=== PATIENT | female | born 1945 | race Caucasian/White ===

== ENCOUNTER 2017-04-18 15:50 | Inpatient (IN) | payer MEDICARE, MEDICAID ==
[~2017-04-18] VITALS: Ht 170.2 cm; Wt 83.5 kg
--- NOTE | 2017-04-18 16:05 | NUR ---
AAOX3, FROM SNF C/O L SIDE ABDOMINAL PAIN. RR IS EVEN AND UNLABORED WITH NAD NOTED. SKIN IS WARM AND DRY. AWAITING MD FOR EVAL.
[2017-04-18 16:44] LABS: BASOPHILS % (AUTO) 0.6 % (0.0-2.0); EOSINOPHILS # (AUTO) 0.1 /CMM (0.0-0.7); EOSINOPHILS % (AUTO) 1.9 % (0.0-6.0); HEMATOCRIT 41 % (33-45); HEMOGLOBIN 13.5 g/dL (11.5-14.8); LYMPHOCYTES # (AUTO) 1.5 /CMM (0.8-4.8); LYMPHOCYTES % (AUTO) 19.2 % (20.0-44.0); MEAN CORPUSCULAR HEMOGLOBIN 28 PG (26.0-33.0); MEAN CORPUSCULAR HGB CONC 33 g/dl (31.0-36.0); MEAN CORPUSCULAR VOLUME 83 fL (82-100); MONOCYTES # (AUTO) 0.5 /CMM (0.1-1.30); MONOCYTES % (AUTO) 6.4 % (2.0-12.0); NEUTROPHILS # (AUTO) 5.7 /CMM (1.8-8.9); NEUTROPHILS % (AUTO) 71.9 % (43.0-81.0); PLATELET COUNT (AUTO) 253 /CMM (150-450); RDW COEFFICIENT OF VARIATION 13.9 (11.5-15.0); WHITE BLOOD COUNT (AUTO) 7.8 K/uL (4.3-11.0)
[2017-04-18 16:53] LABS: CALCIUM, SERUM 9.2 mg/dL (8.5-10.1); CARBON DIOXIDE 26 mmol/L (21-32); CHLORIDE 104 mmol/L (98-107); CREATININE 1.1 mg/dL (0.6-1.3); GLUCOSE 104 mg/dL (74-106); POTASSIUM 4.2 mmol/L (3.5-5.1); SODIUM SERUM 137 mmol/L (136-145); UREA NITROGEN, BLOOD 30 mg/dL (7-18)
--- NOTE | 2017-04-18 17:04 | NUR ---
DR.RUTHERFORD YVETTE BRICK MASON
--- NOTE | 2017-04-18 17:09 | NUR ---
CALLED NURSING SUP. FOR MS BED
[2017-04-18] MEDS ORDERED: HYDROCODONE/APAP 5/325MG 1 EACH TABLET PO PRN (17:30)
[2017-04-18] MEDS ORDERED: IV NS 0.9% 1,000 ML BAG IV ONE (17:30)
[2017-04-18] MEDS ORDERED: ONDANSETRON HCL/PF 4 MG/2 ML VIAL IVP PRN (17:30)
[2017-04-18] MEDS ORDERED: Z GUARD REMEDY 2 OZ OINT TP PRN (17:30)
[2017-04-18] MEDS ORDERED: ZOLPIDEM TARTRATE 5 MG TABLET PO PRN (17:30)
[2017-04-18] MEDS ORDERED: MAG HYDROX/AL HYDROX/SIMETH 30 ML UDC PO PRN (17:30)
[2017-04-18] MEDS ORDERED: MAGNESIUM HYDROXIDE 30 ML UDC PO PRN (17:30)
--- NOTE | 2017-04-18 17:33 | NUR ---
MS 307-2
[2017-04-18] MEDS ORDERED: LACT10SO PO (17:57)
[2017-04-18] MEDS ORDERED: SUCR1TAB PO (17:57)
[2017-04-18] MEDS ORDERED: HYDR-552 PO (17:57)
[2017-04-18] MEDS ORDERED: SERT25TA PO (17:57)
[2017-04-18] MEDS ORDERED: ACET325T53 PO (17:57)
[2017-04-18] MEDS ORDERED: LINA290C PO (17:57)
[2017-04-18] MEDS ORDERED: TEMA15CA PO (17:57)
[2017-04-18] MEDS ORDERED: FAMO20TA8 PO (17:57)
[2017-04-18] MEDS ORDERED: LOSA50TA21 PO (17:57)
[2017-04-18] MEDS ORDERED: ALBU18HF2 IH (17:57)
[2017-04-18] MEDS ORDERED: FERR-58 PO (17:57)
--- NOTE | 2017-04-18 18:08 | NUR ---
REPORT GIVEN TO JF SWANSON FOR [facility] MS 307-2
--- NOTE | 2017-04-18 19:35 | NUR ---
MS RN INITIAL NOTES PT IS IN BED RESTING, AWAKE AND ALERT. ABLE TO MAKE NEEDS KNOWN. PT IS IN GOOD SPIRITS. DENIES PAIN. BREATHING EVENLY AND UNLABORED ON RA, NO SIGNS OF SOB OR DISTRESS. SKIN IS INTACT, C- SECTION SCARRING NOTED. IV FLUIDS TO BE HUNG, IV ACCESS IS INTACT AND PATENT. BED IS IN LOW AND LOCKED POSITION, CALL LIGHT WITHIN REACH. WILL CONTINUE TO MONITOR PT
[2017-04-18 20:00] VITALS: BP 124/70
[2017-04-18] MEDS: IV NS 0.9% 1,000 ML IV PRN (20:04)
[2017-04-18] MEDS: ENOXAPARIN SODIUM 30 MG/0.3 ML DISP.SYRIN SQ SCH (20:04)
--- NOTE | 2017-04-19 06:16 | NUR ---
MS RN CLOSING NOTES PT IS IN BED RESTING. NO SIGNS OF SOB OR DISTRESS. BREATHING EVENLY AND UNLABORED ON RA. IV ACCESS IS INTACT AND PATENT WITH FLUIDS RUNNING.URINE COLLECTED. NO ACUTE CHANGES THROUGHOUT THE SHIFT. ALL NEEDS WERE ANTICIPATED AND MET. BED IS IN LOW AND LOCKED POSITION, CALL LIGHT WITHIN REACH. WILL ENDORSE TO DAYSHIFT.
[2017-04-19] MEDS: ACETAMINOPHEN 325 MG TABLET PO PRN (06:23)
[2017-04-19 06:30] LABS: BASOPHILS % (AUTO) 0.5 % (0.0-2.0); EOSINOPHILS # (AUTO) 0.2 /CMM (0.0-0.7); EOSINOPHILS % (AUTO) 3.4 % (0.0-6.0); HEMATOCRIT 36 % (33-45); HEMOGLOBIN 12.1 g/dL (11.5-14.8); LYMPHOCYTES # (AUTO) 1.9 /CMM (0.8-4.8); LYMPHOCYTES % (AUTO) 34.1 % (20.0-44.0); MEAN CORPUSCULAR HEMOGLOBIN 28 PG (26.0-33.0); MEAN CORPUSCULAR HGB CONC 33 g/dl (31.0-36.0); MEAN CORPUSCULAR VOLUME 85 fL (82-100); MONOCYTES # (AUTO) 0.5 /CMM (0.1-1.30); NEUTROPHILS # (AUTO) 2.9 /CMM (1.8-8.9); PLATELET COUNT (AUTO) 214 /CMM (150-450); RDW COEFFICIENT OF VARIATION 14.7 (11.5-15.0); RED BLOOD CELL COUNT(AUTO) 4.28 MIL/uL (4.0-5.2); WHITE BLOOD COUNT (AUTO) 5.5 K/uL (4.3-11.0)
[2017-04-19 06:51] LABS: APPEARANCE,URINE CLEAR (CLEAR); BILIRUBIN,URINE NEGATIVE (NEGATIVE); BLOOD, URINE NEGATIVE Ery/uL (NEGATIVE); COLOR,URINE YELLOW (YELLOW); KETONES,URINE NEGATIVE (NEGATIVE); LEUKOCYTE ESTERASE ,URINE NEGATIVE (NEGATIVE); NITRITE, URINE NEGATIVE (NEGATIVE); PH,URINE 5.5 (5.0-8.0); PROTEIN,URINE NEGATIVE (NEGATIVE); UGLUCOSE NEGATIVE (NEGATIVE); UROBILINOGEN,URINE 0.2 EU/dL (0.2)
[2017-04-19] MEDS ORDERED: HYDROCODONE/APAP 5/325MG 1 EACH TABLET PO PRN (07:00)
[2017-04-19] MEDS ORDERED: ACETAMINOPHEN 325 MG TABLET PO PRN (07:00)
[2017-04-19 07:07] LABS: CALCIUM, SERUM 8.8 mg/dL (8.5-10.1); CARBON DIOXIDE 26 mmol/L (21-32); CHLORIDE 108 mmol/L (98-107); GLUCOSE 87 mg/dL (74-106); MAGNESIUM 1.7 mg/dL (1.8-2.4); PHOSPHORUS 3.9 mg/dL (2.5-4.9); POTASSIUM 4.5 mmol/L (3.5-5.1); SODIUM SERUM 143 mmol/L (136-145); UREA NITROGEN, BLOOD 25 mg/dL (7-18)
--- NOTE | 2017-04-19 07:29 | NUR ---
MS RN OPENING NOTES RECEIVED PT AWAKE IN BED IN NO ACUTE SIGNS OF DISTRESS. A/O X4, SAME ABLE TO MAKE NEEDS KNOWN, DENIES PAIN OR DISCOMFORTS AT THIS TIME. ON ROOM AIR, BREATHING EVEN AND UNLABORED. IV FLUIDS OF NS @75ML/HR INFUSING TO PERIPHERAL LINE ON LEFT HAND, NO S/S OF INFILTRATION NOTED. BED IS IN LOW AND LOCKED POSITION, CALL LIGHT WITHIN REACH. WILL CONTINUE TO MONITOR PT ACCORDINGLY
[2017-04-19 08:00] VITALS: BP 129/68
[2017-04-19] MEDS ORDERED: LACTULOSE 10 G/15 ML UDC (PYXIS) PO PRN (08:00)
[2017-04-19] MEDS: PANTOPRAZOLE 40 MG TABLET.DR PO SCH (08:15)
[2017-04-19] MEDS ORDERED: Medication Not On Formulary EA (Linaclotide (Linzess) 290 MCG) PO SCH (09:00)
[2017-04-19] MEDS: FAMOTIDINE (20 MG) 20 MG TABLET PO SCH ×2 (09:23→17:29)
[2017-04-19] MEDS: FERROUS SULFATE (325 MG) 325 MG/TAB TABLET PO SCH (09:24)
[2017-04-19] MEDS: SUCRALFATE 1 G TABLET PO SCH ×4 (09:24→21:14)
[2017-04-19] MEDS: LOSARTAN POTASSIUM 50 MG TABLET PO SCH (09:24)
[2017-04-19] MEDS: SERTRALINE HCL 25 MG TABLET PO SCH (09:25)
[2017-04-19] MEDS: Magnesium 1GM/D5W 100ML PREMIX 100 ML IV SCH ×2 (11:57→13:35)
--- NOTE | 2017-04-19 15:56 | NUR ---
RN NOTES PATIENT'S IV ACCESS ON LEFT HAND INFILTRATED, NEW IV ACCESS ON RIGHT HAND G#22 INSERTED. IVF OF NS @75ML/HR RESUMED. WILL CONTINUE TO MONITOR.
[2017-04-19 16:00] VITALS: BP 123/61
[2017-04-19] MEDS: IV NS 0.9% 1,000 ML IV PRN (16:48)
--- NOTE | 2017-04-19 18:30 | NUR ---
MS RN CLOSING NOTES PATIENT AWAKE IN BED WATCHING TV AT THIS TIME. HOB ELEVATED. A/O X4, SAME VERBALLY RESPONSIVE WITH NO C/O PAIN THROUGHOUT THE DAY. ON ROOM AIR, BREATHING EVEN AND UNLABORED, NO SOB NOTED. IV FLUIDS OF NS @75ML/HR INFUSING WELL TO PERIPHERAL LINE ON RIGHT HAND G#22, NO SIGNS OF INFILTRATION NOTED. MAINTAINED BED IN LOW AND LOCKED POSITION, CALL LIGHT WITHIN REACH. ALL SAFETY MEASURES ENFORCED. ALL NEEDS AND CARE PROVIDED WELL. WILL ENDORSED TO MARKETING COMMUNITY LIAISON NURSE FOR [place].
--- NOTE | 2017-04-19 19:26 | NUR ---
MS RN INITIAL NOTES PT IS IN BED AWAKE AND ALERT, ABLE TO MAKE NEEDS KNOWN. NO SIGNS OF SOB OR DISTRESS, BREATHING EVENLY AND UNLABORED ON RA. IV ACCESS IS INTACT AND PATENT. DENIES PAIN AT THIS TIME. BED IS IN LOW AND LOCKED POSITION, CALL LIGHT WITHIN REACH. WILL CONTINUE TO MONITOR PT.
[2017-04-19 20:00] VITALS: BP 130/84
[2017-04-19] MEDS: ENOXAPARIN SODIUM 30 MG/0.3 ML DISP.SYRIN SQ SCH (21:00)
[2017-04-19] MEDS: TEMAZEPAM 15 MG CAPSULE PO SCH (21:15)
[2017-04-19] MEDS: ALBUTEROL FS 2.5 MG/0.5 ML VIAL.NEB NEB SCH ×2 (22:05→22:18)
[2017-04-20] MEDS: ALBUTEROL FS 2.5 MG/0.5 ML VIAL.NEB NEB SCH ×4 (01:30→19:52)
[2017-04-20] MEDS: ACETAMINOPHEN 325 MG TABLET PO PRN ×2 (05:14→07:48)
--- NOTE | 2017-04-20 06:11 | NUR ---
MS RN CLOSING NOTES PT IS IN BED RESTING. NO SIGNS OF SOB OR DISTRESS. BREATHING EVENLY AND UNLABORED ON RA. IV ACCESS IS INTACT AND PATENT WITH FLUIDS RUNNING. NO ACUTE CHANGES THROUGHOUT THE SHIFT. ALL NEEDS WERE ANTICIPATED AND MET. BED IS IN LOW AND LOCKED POSITION, CALL LIGHT WITHIN REACH. WILL ENDORSE TO DAYSHIFT.
[2017-04-20 06:54] LABS: CALCIUM, SERUM 8.6 mg/dL (8.5-10.1); CARBON DIOXIDE 28 mmol/L (21-32); CHLORIDE 105 mmol/L (98-107); GLUCOSE 139 mg/dL (74-106); MAGNESIUM 2.3 mg/dL (1.8-2.4); POTASSIUM 4.1 mmol/L (3.5-5.1); SODIUM SERUM 140 mmol/L (136-145); UREA NITROGEN, BLOOD 26 mg/dL (7-18)
--- NOTE | 2017-04-20 07:26 | NUR ---
MS RN OPENING NOTES PATIENT RECEIVED AWAKE IN BED IN NO ACUTE SIGNS OF DISTRESS. A/O X4. VERBALLY RESPONSIVE, DENIES PAIN OR DISCOMFORTS AT THIS TIME. ON ROOM AIR, BREATHING EVEN AND UNLABORED. IV ACCESS ON RIGHT HAND G#22 INTACT AND PATENT, IVF OF NS @75ML/HR INFUSING WELL, NO SIGNS OF INFILTRATION OR PHLEBITIS TO IV SITE NOTED. BED IS IN LOW AND LOCKED POSITION, CALL LIGHT WITHIN REACH. WILL CONTINUE TO MONITOR PT ACCORDINGLY
[2017-04-20] MEDS: PANTOPRAZOLE 40 MG TABLET.DR PO SCH (07:48)
--- NOTE | 2017-04-20 07:50 | NUR ---
RN NOTES PATIENT C/O MILD HEADACHE AND REQUESTED TYLENOL. PRN TYLENOL 650MG TAB GIVEN. WILL CONTINUE TO MONITOR
[2017-04-20 08:00] VITALS: BP 118/68
[2017-04-20] MEDS: LOSARTAN POTASSIUM 50 MG TABLET PO SCH (08:26)
[2017-04-20] MEDS: FERROUS SULFATE (325 MG) 325 MG/TAB TABLET PO SCH (08:26)
[2017-04-20] MEDS: SUCRALFATE 1 G TABLET PO SCH ×4 (08:26→21:53)
[2017-04-20] MEDS: FAMOTIDINE (20 MG) 20 MG TABLET PO SCH ×2 (08:26→17:15)
[2017-04-20] MEDS: SERTRALINE HCL 25 MG TABLET PO SCH (08:26)
[2017-04-20 16:00] VITALS: BP 132/75
--- NOTE | 2017-04-20 18:15 | NUR ---
RN NOTES PT KEEPS ON GOING ON AND OFF TO THE BATHROOM TO URINATE. REQUESTED TO REMOVE IV ACCESS. EXPLAINED THAT WE NEED IV ACCESS INTACT AND PATENT HOSPITAL PROTOCOL/POLICY. PT UNDERSTAND BUT REFUSED IVF AT THIS TIME. ENCOURAGED TO INCREASED P.O. FLUIDS THEN AND VERBALIZED UNDERSTANDING. PT DRINKING WELL. WILL CONTINUE TO MONITOR.
--- NOTE | 2017-04-20 18:42 | NUR ---
MS RN CLOSING NOTES PATIENT AWAKE AND READING POCKET BOOKS IN BED. A/O X4, SAME VERBALLY RESPONSIVE AND AMBULATORY. ON ROOM AIR, BREATHING EVEN AND UNLABORED, NO SOB NOTED. IV ACCESS ON RIGHT HAND G#22 INTACT AND PATENT, PATIENT REQUESTED NOT TO CONNECT IVF AT THIS TIME BEC SHE GOES TO BATHROOM SEVERAL TIMES. HOB ELEVATED. KEPT BED IN LOW AND LOCKED POSITION, CALL LIGHT WITHIN REACH. ALL SAFETY MEASURES MAINTAINED. ALL DUE MEDS GIVEN ORDERED AND TOLERATED. ALL NEEDS AND CARE PROVIDED WELL. WILL ENDORSED TO BOILER TECHNICIAN NURSE FOR [place].
--- NOTE | 2017-04-20 19:20 | NUR ---
RN OPEN NOTES RECEIVED PATIENT AWAKE IN BED. A/O X4. NO SIGNS OF DISTRESS OR DISCOMFORT. BREATHING EVEN AND UNLABORED. IV ACCESS IN R HAND PATENT AND INTACT, NO SIGNS OF REDNESS OR INFILTRATION. PATIENT REFUSING IVF AT THIS TIME. BED IN LOW LOCKED POSITION WITH SIDE RAILS X3. CALL LIGHT WITHIN REACH. WILL CONTINUE TO [id number].
[2017-04-20 20:00] VITALS: BP 113/65
[2017-04-20 20:10] VITALS: BP 113/65
[2017-04-20] MEDS: ENOXAPARIN SODIUM 30 MG/0.3 ML DISP.SYRIN SQ SCH (21:00)
--- NOTE | 2017-04-20 21:00 | NUR ---
RN NOTES PATIENT REFUSED X3, LOVENOX 30MG ADMINISTRATION. PATIENT EDUCATION REINFORCED REGARDING ANTICOAGULATION. WILL CONTINUE TO MONITOR.
[2017-04-20] MEDS: TEMAZEPAM 15 MG CAPSULE PO SCH (21:53)
[2017-04-21] MEDS: ALBUTEROL FS 2.5 MG/0.5 ML VIAL.NEB NEB SCH ×3 (01:30→13:28)
[2017-04-21] MEDS: ACETAMINOPHEN 325 MG TABLET PO PRN (02:48)
--- NOTE | 2017-04-21 06:35 | NUR ---
RN CLOSING NOTES PATIENT RESTING IN BED, EASILY AROUSABLE. A/O X4. NO SIGNS OF DISTRESS OR DISCOMFORT. BREATHING EVEN AND UNLABORED. IV ACCESS IN R HAND PATENT AND INTACT, NO SIGNS OF REDNESS OR INFILTRATION. PATIENT STILL REFUSING IVF AT THIS TIME. ALL NEEDS MET. NO SIGNIFICANT CHANGES THROUGH THE NIGHT. BED IN LOW LOCKED POSITION WITH SIDE RAILS X3. CALL LIGHT WITHIN REACH. WILL ENDORSE TO AM SHIFT FOR [place].
[2017-04-21] MEDS: PANTOPRAZOLE 40 MG TABLET.DR PO SCH (07:30)
[2017-04-21 08:00] VITALS: BP 120/63
[2017-04-21] MEDS: FERROUS SULFATE (325 MG) 325 MG/TAB TABLET PO SCH (10:45)
[2017-04-21] MEDS: LOSARTAN POTASSIUM 50 MG TABLET PO SCH (10:46)
[2017-04-21] MEDS: SUCRALFATE 1 G TABLET PO SCH ×3 (10:47→17:34)
[2017-04-21] MEDS: SERTRALINE HCL 25 MG TABLET PO SCH (10:47)
[2017-04-21] MEDS: FAMOTIDINE (20 MG) 20 MG TABLET PO SCH ×2 (10:47→17:34)
[2017-04-21 16:00] VITALS: BP 114/60
--- NOTE | 2017-04-21 17:05 | NUR ---
MS/RN REPORT GIVEN TO ACCEPTING FACILITY /[facility]IS RN @ [facility] [phone]. PT PERSONALLY DISCUSSED AND AGREED TO GO WITH CLINICAL PRACTITIONER @ [phone] VICKI ORTIZ. EXIT CARE TEACHINGS PROVIDED, VSS NO ACUTE DISTRESS NOTED,H/L AND ID BAND REMOVED. AMBULANCE ON THE WAY TO MEDICAL TECHNOLOGIST CHIEF THE PT
--- NOTE | 2017-04-21 18:40 | NUR ---
MS/RN PT IS LEAVING VIA AMBULANCE. VSS. NO ACUTE DISTRESS
== END 2017-04-21 18:45 | DRG 391 ==
LOC: ER 15:52 → MED 17:44
PROVIDERS: ADMIT Internal Medicine; ATTEND Internal Medicine
DX: K58.0 Irritable bowel syndrome with diarrhea (principal); G92 Toxic encephalopathy; J44.9 Chronic obstructive pulmonary disease, unspecified; E86.0 Dehydration; F03.90 Unspecified dementia, unspecified severity, without behavioral disturbance, psychotic disturbance, mood disturbance, and anxiety; I10 Essential (primary) hypertension; I25.10 Atherosclerotic heart disease of native coronary artery without angina pectoris; K21.9 Gastro-esophageal reflux disease without esophagitis; M19.90 Unspecified osteoarthritis, unspecified site; R79.89 Other specified abnormal findings of blood chemistry; R53.1 Weakness
CPT/HCPCS: 36415; 80048-TC; 81000-TC; 83735-TC; 84100-TC; 85025-TC; 87045-TC; 87081-TC; A4606; J1650; J3475; J7030; Z7610